=== PATIENT | female | born 1995 | race African-American/Black ===

== ENCOUNTER 2017-02-06 16:29 | Emergency (ER) | payer OTHER ==
[~2017-02-06] VITALS: Ht 162.6 cm; Wt 56.7 kg
[2017-02-06 16:35] VITALS: BP 119/84
== END 2017-02-06 17:50 | disposition home or self-care (01) ==
LOC: ED 16:29
DX: M54.5 Low back pain (principal)

== ENCOUNTER 2018-03-02 12:10 | Emergency (ER) | payer OTHER ==
[~2018-03-02] VITALS: Ht 162.6 cm; Wt 54.4 kg
[2018-03-02 12:23] VITALS: Ht 162.6 cm; Wt 54.4 kg
[2018-03-02 12:57] VITALS: BP 115/85
== END 2018-03-02 12:57 | disposition home or self-care (01) ==
LOC: ED 12:10
DX: S16.1XXA Strain of muscle, fascia and tendon at neck level, initial encounter (principal); V89.2XXA Person injured in unspecified motor-vehicle accident, traffic, initial encounter; S39.012A Strain of muscle, fascia and tendon of lower back, initial encounter; Y93.I9 Activity, other involving external motion; Y92.89 Other specified places as the place of occurrence of the external cause; Y99.8 Other external cause status; S80.811A Abrasion, right lower leg, initial encounter